=== PATIENT | male | born 1980 | race Caucasian/White ===

== ENCOUNTER 2019-01-01 08:58 | Emergency (ER) | payer OTHER ==
[~2019-01-01] VITALS: Ht 195.6 cm; Wt 107.3 kg
[2019-01-01 09:05] VITALS: BP 158/89
[2019-01-01] MEDS ORDERED: AMOX1TAB61 PO (09:19)
--- NOTE | 2019-01-01 09:19 | PHYS DOC ---
Adult General Chief Complaint Chief Complaint: ANIMAL BITE [facility] HPI Patient is a 38 year old male who works for the [employer] who presents to the ED today for a dog bite he sustained on December 27, 2018. He states the dog was not up-to-date with its shots and Leisa/his job sent him to the ED to get rabies immunoglobulin. Patient states the dog is in quarantine with animal control and is acting normal so far. The dog only has 5 more days to finish the quarantine. Patient was never started on any antibiotics when he was seen at [facility]. Patient denies any symptoms. Tetanus is up-to-date. Review of Systems Review of Systems Constitutional: Denies fever or chills [] Eyes: Denies change in visual acuity, redness, or eye pain [] HENT: Denies nasal congestion or sore throat [] Respiratory: Denies cough or shortness of breath [] Cardiovascular: No additional information not addressed in HPI [] GI: Denies abdominal pain, nausea, vomiting, bloody stools or diarrhea [] : Denies dysuria or hematuria [] Musculoskeletal: Denies back pain or joint pain [] Integument: Dog bite to the right pike Neurologic: Denies headache, focal weakness or sensory changes [] All other systems were reviewed and found to be within normal limits, except as documented in this note. Physical Exam Physical Exam Constitutional: Well developed, well nourished, no acute distress, non-toxic appearance. [] HENT: Normocephalic, atraumatic, bilateral external ears normal, oropharynx moist, no oral exudates, nose normal. [] Eyes: PERRLA, EOMI, conjunctiva normal, no discharge. [] Neck: Normal range of motion, no tenderness, supple, no stridor. [] Cardiovascular:Heart rate regular rhythm, no murmur [] Lungs & Thorax: Bilateral breath sounds clear to auscultation [] Abdomen: Bowel sounds normal, soft, no tenderness, no masses, no pulsatile masses. [] Skin: Warm, dry, 2 tiny bruises noted on the right lower pike, patient states this a puncture wounds from the dog bite. There is no open skin. There is no bleeding, there is no signs of infection Back: No tenderness, no CVA tenderness. [] Extremities: No tenderness, no cyanosis, no clubbing, ROM intact, no edema. [] Neurologic: Alert and oriented X 3, normal motor function, normal sensory function, no focal deficits noted. [] Psychologic: Affect normal, judgement normal, mood normal. [] Current Patient Data Vital Signs Vital Signs Date Time Temp Pulse Resp B/P (MAP) Pulse Ox O2 Delivery O2 Flow Rate FiO2 01/01/19 09:05 98.4 56 16 158/89 (112) 98 Room Air 98.4 EKG EKG [] Radiology/Procedures Radiology/Procedures [] Course & Med Decision Making Course & Med Decision Making Pertinent Labs and Imaging studies reviewed. (See chart for details) This is a 38-year-old male patient who presents to the ED today with a dog bite to the right pike that occurred on December 27, 2018, patient was seen by Leisa and his job and instructed to come to the ED today for rabies immunoglobulin. Patient has no symptoms. The dog was not up-to-date with its shots but is being quarantined by animal control and so far it is acting normal. Patient is up-to-date with his tetanus shots. He two tiny bruiseson the right pike. Spoke to patient about rabies immunoglobulin. We have not had a case of rabies in this region for years. D/c on Augmentin. Provided patient return precautions. Discharged to home. Dragon Disclaimer Dragon Disclaimer This electronic medical record was generated, in whole or in part, using a voice recognition dictation system. Departure Departure Impression: Primary Impression: Dog bite of right lower leg Disposition: HOME, SELF-CARE Condition: STABLE Patient Instructions: Animal Bite, [id number] Additional Instructions: You were evaluated in the ER for a dog bite to the right lower extremity. Keep the area clean and dry. Take the prescribed antibiotics until completed. Follow- up with your own doctor in one week. Come back to the ED at any point you have concerning symptoms Scripts Amoxicillin/Potassium Clav (AUGMENTIN 875-125 TABLET) 1 Each Tablet 1 TAB PO BID, #20 TAB Prov: EMORY GARCIA APRN 01/01/19 Problem Qualifiers Primary Impression: Dog bite of right lower leg Encounter type: initial encounter Qualified Codes: S81.851A - Open bite, right lower leg, initial encounter; W54.0XXA - Bitten by dog, initial encounter EMORY GARCIA APRN Jan 01, 2019 09:19
== END 2019-01-01 09:27 | disposition home or self-care (01) ==
LOC: ER 08:58
DX: S81.851A Open bite, right lower leg, initial encounter (principal); W54.0XXA Bitten by dog, initial encounter; Y93.89 Activity, other specified; Y92.89 Other specified places as the place of occurrence of the external cause; Y99.0 Civilian activity done for income or pay
CPT/HCPCS: 99283